=== PATIENT | male | born 1945 | race African-American/Black ===

== ENCOUNTER 2021-12-19 16:56 | Inpatient (IN) | payer MEDICARE ==
[2021-12-19] MEDS ORDERED: Morphine 4 MG/ML VIAL ONE (17:29)
[2021-12-19] MEDS ORDERED: Ondansetron PF 4 MG/2 ML Vial ONE (17:40)
[2021-12-19 22:30] VITALS: BMI 27.2
[2021-12-19] MEDS ORDERED: Morphine 4 MG/ML VIAL SLOW IVP SCH (23:30)
[2021-12-20] MEDS ORDERED: Acetaminophen 650 MG Suppository PR PRN (00:04)
[2021-12-20] MEDS ORDERED: Enoxaparin Sodium 40 MG/0.4 ML SYRINGE SC SCH (00:30)
[2021-12-20] MEDS: NS 0.9% w/ 20 MEQ KCL 1,000 ML/1,000 ML BAG IV SCH ×3 (00:53→20:03)
[2021-12-20] MEDS ORDERED: Aztreonam 1 GM in Sodium Chloride 0.9% 100 ML IVPB SCH (01:00)
[2021-12-20 04:52] LABS: #Eosinphils 0.2 10x3/uL (0.0-0.5); #Monocytes 0.8 10x3/uL (0.0-1.1); #Neutrophils 14.3 10x3/uL (1.5-8.4); %Basophils 0.2 % (0.0-2.0); %Eosinophils 1.2 % (0.0-6.0); %Lymphocytes 4.6 % (18.0-47.0); %Monocytes 4.7 % (0.0-10.0); %Neutrophils 88.3 % (40.0-75.0); Hemoglobin 12.6 g/dL (13.5-17.5); Mean Corpuscular HGB CONC 33.7 g/dL (32.0-36.0); Mean Corpuscular Volume 100.8 fl (81.2-95.1); Mean Platelet Volume 9.8 fl (7.4-10.4); Platelet Count 171 10x3/uL (150-450); RBC Distribution Width 12.7 % (11.5-14.5); Red Blood Cell (RBC) Count 3.71 10x6/uL (4.32-5.72); White Blood Cell (WBC) Count 16.2 10x3/uL (3.5-10.5)
[2021-12-20 05:26] LABS: ALT (SGPT) 623 U/L (8-55); AST (SGOT) 352 U/L (5-34); Albumin 3.7 g/dL (3.4-4.8); Alkaline Phosphatase 108 U/L (40-110); Anion Gap 14 mmol/L (10-20); BUN (Urea Nitrogen) 14 mg/dL (8.4-25.7); Bilirubin, Total 4.1 mg/dL (0.2-1.2); Calc. Creatinine Clearance 78 mL/min (70-130); Calcium 9.2 mg/dL (7.8-10.44); Carbon Dioxide 22 mmol/L (23-31); Chloride 105 mmol/L (98-107); Globulin 3.2 g/dL (2.4-3.5); Glucose 110 mg/dL (83-110); Magnesium 1.7 mg/dL (1.6-2.6); Potassium 3.9 mmol/L (3.5-5.1); Protein, Total 6.9 g/dL (5.8-8.1); Sodium 137 mmol/L (136-145)
[2021-12-20 05:42] LABS: MDiff Complete? YES; Platelet Morphology Comment Appears Adequate
[2021-12-20 05:46] LABS: Anisocytosis SLIGHT = 6-15 cells (100X) (0-5/hpf)
[2021-12-20 05:48] LABS: Band 10 % (5-11); Lymphocytes 2 % (21-51); Monocytes 6 % (0-10); Neutrophil 82 % (42-75)
[2021-12-20] MEDS: Morphine 4 MG/ML VIAL SLOW IVP PRN ×2 (15:38→20:15)
[2021-12-20 15:52] LABS: SARS-CoV-2 PCR by NAA Not Detected (NotDetected)
[2021-12-20] MEDS ORDERED: HumaLOG 300 UNITS/3 ML VIAL SC PRN (16:13)
[2021-12-20] MEDS ORDERED: Dextrose 5% in Water 1,000 ML IV PRN (16:13)
[2021-12-20] MEDS ORDERED: Dextrose 50% Abboject 50 ML SYRINGE SLOW IVP PRN (16:13)
[2021-12-20] MEDS ORDERED: Enoxaparin Sodium 40 MG/0.4 ML SYRINGE ONE (19:49)
[2021-12-20] MEDS: Gabapentin 300 MG CAP PO SCH (20:15)
[2021-12-20] MEDS: traZODone HCl 50 MG TAB PO SCH (20:16)
[2021-12-20] MEDS: Enoxaparin Sodium 40 MG/0.4 ML SYRINGE SC SCH (20:23)
[2021-12-21] MEDS: NS 0.9% w/ 20 MEQ KCL 1,000 ML/1,000 ML BAG IV SCH ×3 (00:14→18:23)
[2021-12-21 04:26] LABS: Hemoglobin 12.1 g/dL (13.5-17.5); Mean Corpuscular HGB CONC 33.2 g/dL (32.0-36.0); Mean Corpuscular Hemoglobin 33.5 pg (27.0-33.0); Mean Corpuscular Volume 100.8 fl (81.2-95.1); Mean Platelet Volume 9.8 fl (7.4-10.4); Platelet Count 177 10x3/uL (150-450); RBC Distribution Width 13.2 % (11.5-14.5); Red Blood Cell (RBC) Count 3.61 10x6/uL (4.32-5.72); White Blood Cell (WBC) Count 7.8 10x3/uL (3.5-10.5)
[2021-12-21 04:46] LABS: ALT (SGPT) 324 U/L (8-55); AST (SGOT) 121 U/L (5-34); Albumin 3.2 g/dL (3.4-4.8); Alkaline Phosphatase 130 U/L (40-110); Anion Gap 14 mmol/L (10-20); BUN (Urea Nitrogen) 16 mg/dL (8.4-25.7); Bilirubin, Total 3.8 mg/dL (0.2-1.2); Calc. Creatinine Clearance 82 mL/min (70-130); Calcium 9.1 mg/dL (7.8-10.44); Carbon Dioxide 21 mmol/L (23-31); Chloride 109 mmol/L (98-107); Globulin 3.1 g/dL (2.4-3.5); Glucose 72 mg/dL (83-110); Potassium 4.3 mmol/L (3.5-5.1); Protein, Total 6.3 g/dL (5.8-8.1); Sodium 140 mmol/L (136-145)
[2021-12-21] MEDS: Amlodipine 10 MG TAB PO SCH (09:12)
[2021-12-21] MEDS: Gabapentin 300 MG CAP PO SCH ×3 (09:12→20:37)
[2021-12-21] MEDS: Atorvastatin Calcium 40 MG TAB PO SCH (09:12)
[2021-12-21] MEDS: Morphine 2 MG/ML VIAL SLOW IVP PRN (20:35)
[2021-12-21] MEDS: Enoxaparin Sodium 40 MG/0.4 ML SYRINGE SC SCH (20:35)
[2021-12-21] MEDS: traZODone HCl 50 MG TAB PO SCH (20:36)
[2021-12-22] MEDS: NS 0.9% w/ 20 MEQ KCL 1,000 ML/1,000 ML BAG IV SCH ×3 (00:58→15:55)
[2021-12-22 04:42] LABS: #Eosinphils 0.2 10x3/uL (0.0-0.5); #Monocytes 0.5 10x3/uL (0.0-1.1); #Neutrophils 3.5 10x3/uL (1.5-8.4); %Basophils 0.6 % (0.0-2.0); %Eosinophils 3.9 % (0.0-6.0); %Lymphocytes 12.9 % (18.0-47.0); %Neutrophils 72.4 % (40.0-75.0); Hemoglobin 12.1 g/dL (13.5-17.5); Mean Corpuscular HGB CONC 33.3 g/dL (32.0-36.0); Mean Corpuscular Hemoglobin 33.8 pg (27.0-33.0); Mean Corpuscular Volume 101.4 fl (81.2-95.1); Mean Platelet Volume 9.7 fl (7.4-10.4); Platelet Count 177 10x3/uL (150-450); RBC Distribution Width 12.6 % (11.5-14.5); Red Blood Cell (RBC) Count 3.58 10x6/uL (4.32-5.72); White Blood Cell (WBC) Count 4.8 10x3/uL (3.5-10.5)
[2021-12-22 04:59] LABS: ALT (SGPT) 229 U/L (8-55); AST (SGOT) 90 U/L (5-34); Albumin 3.1 g/dL (3.4-4.8); Alkaline Phosphatase 149 U/L (40-110); Anion Gap 12 mmol/L (10-20); BUN (Urea Nitrogen) 11 mg/dL (8.4-25.7); Bilirubin, Total 3.4 mg/dL (0.2-1.2); Calc. Creatinine Clearance 93 mL/min (70-130); Calcium 8.9 mg/dL (7.8-10.44); Carbon Dioxide 22 mmol/L (23-31); Chloride 112 mmol/L (98-107); Globulin 3.2 g/dL (2.4-3.5); Glucose 103 mg/dL (83-110); Potassium 4.6 mmol/L (3.5-5.1); Protein, Total 6.3 g/dL (5.8-8.1); Sodium 141 mmol/L (136-145)
[2021-12-22] MEDS: Morphine 2 MG/ML VIAL SLOW IVP PRN ×2 (05:07→20:20)
[2021-12-22] MEDS: Atorvastatin Calcium 40 MG TAB PO SCH (08:43)
[2021-12-22] MEDS: Amlodipine 10 MG TAB PO SCH (08:43)
[2021-12-22] MEDS: Gabapentin 300 MG CAP PO SCH ×3 (08:43→20:19)
[2021-12-22] MEDS ORDERED: Bupivacaine 0.25% HCL 30 ML VIAL ONE (09:58)
[2021-12-22] MEDS ORDERED: Iopamidol 15 ML ONE (09:59)
[2021-12-22] MEDS ORDERED: EPINEPHrine 1 MG/ML AMP ONE (09:59)
[2021-12-22] MEDS ORDERED: Fentanyl 100 MCG/2 ML VIAL ONE ×2 (10:47→13:15)
[2021-12-22] MEDS ORDERED: PROPOFOL 20 ML ONE (10:47)
[2021-12-22] MEDS ORDERED: Rocuronium Bromide 10 MG/ML (10ML VIAL) ONE (10:48)
[2021-12-22] MEDS ORDERED: Lidocaine 2% PF 5 ML VIAL ONE (10:48)
[2021-12-22] MEDS ORDERED: Ondansetron PF 4 MG/2 ML Vial ONE (10:48)
[2021-12-22] MEDS ORDERED: SUGAMMADEX SODIUM 200 MG/2 ML VIAL ONE (10:50)
[2021-12-22] MEDS ORDERED: Iopamidol 30 ML ONE (11:59)
[2021-12-22 12:34] LABS: Hemoglobin A1c 5.5 % (4.0-6.0)
[2021-12-22] MEDS ORDERED: PHENYLEPHRINE-NS 100 MCG/ML 10 ML SYRINGE ONE (13:12)
[2021-12-22] MEDS: Morphine 4 MG/ML VIAL SLOW IVP PRN (15:54)
[2021-12-22] MEDS: Enoxaparin Sodium 40 MG/0.4 ML SYRINGE SC SCH (20:20)
[2021-12-22] MEDS: traZODone HCl 50 MG TAB PO SCH (20:21)
[2021-12-23] MEDS: NS 0.9% w/ 20 MEQ KCL 1,000 ML/1,000 ML BAG IV SCH ×2 (01:00→08:33)
[2021-12-23 04:23] LABS: #Eosinphils 0.1 10x3/uL (0.0-0.5); #Monocytes 0.6 10x3/uL (0.0-1.1); %Basophils 0.4 % (0.0-2.0); %Lymphocytes 10.4 % (18.0-47.0); %Monocytes 11.1 % (0.0-10.0); %Neutrophils 76.7 % (40.0-75.0); Hemoglobin 12.7 g/dL (13.5-17.5); Hemoglobin 12.9 g/dL (13.5-17.5); Mean Corpuscular HGB CONC 33.2 g/dL (32.0-36.0); Mean Corpuscular HGB CONC 33.5 g/dL (32.0-36.0); Mean Corpuscular Hemoglobin 33.3 pg (27.0-33.0); Mean Corpuscular Hemoglobin 33.7 pg (27.0-33.0); Mean Corpuscular Volume 100.3 fl (81.2-95.1); Mean Corpuscular Volume 100.5 fl (81.2-95.1); Mean Platelet Volume 9.6 fl (7.4-10.4); Platelet Count 178 10x3/uL (150-450); Platelet Count 181 10x3/uL (150-450); RBC Distribution Width 12.8 % (11.5-14.5); Red Blood Cell (RBC) Count 3.81 10x6/uL (4.32-5.72); Red Blood Cell (RBC) Count 3.83 10x6/uL (4.32-5.72); White Blood Cell (WBC) Count 5.1 10x3/uL (3.5-10.5); White Blood Cell (WBC) Count 5.2 10x3/uL (3.5-10.5)
[2021-12-23 04:44] LABS: ALT (SGPT) 227 U/L (8-55); AST (SGOT) 133 U/L (5-34); Albumin 3.1 g/dL (3.4-4.8); Alkaline Phosphatase 188 U/L (40-110); Anion Gap 15 mmol/L (10-20); BUN (Urea Nitrogen) 8 mg/dL (8.4-25.7); Bilirubin, Total 2.6 mg/dL (0.2-1.2); Calc. Creatinine Clearance 101 mL/min (70-130); Carbon Dioxide 21 mmol/L (23-31); Chloride 108 mmol/L (98-107); Globulin 3.2 g/dL (2.4-3.5); Glucose 109 mg/dL (83-110); Potassium 4.4 mmol/L (3.5-5.1); Protein, Total 6.3 g/dL (5.8-8.1); Sodium 140 mmol/L (136-145)
[2021-12-23] MEDS: Atorvastatin Calcium 40 MG TAB PO SCH (08:32)
[2021-12-23] MEDS: Amlodipine 10 MG TAB PO SCH (08:33)
[2021-12-23] MEDS: Gabapentin 300 MG CAP PO SCH (08:33)
[2021-12-23 11:09] VITALS: TEMP 99
[2021-12-23 11:57] VITALS: BP 134/85
== END 2021-12-23 14:31 | disposition home or self-care (01) | DRG 419 ==
LOC: CSHERS 16:56 → UNDOADMIN 21:29 → CSHTELE 21:29
PROVIDERS: ADMIT Family Medicine; ATTEND Internal Medicine
PROC: 0FT44ZZ Resection of Gallbladder, Percutaneous Endoscopic Approach (ICD-10-PCS; principal; 2021-12-22)
PROC: BF502Z0 Other Imaging of Bile Ducts using Fluorescing Agent, Intraoperative (ICD-10-PCS; 2021-12-22)
DX: K80.00 Calculus of gallbladder with acute cholecystitis without obstruction (principal); I10 Essential (primary) hypertension; E78.00 Pure hypercholesterolemia, unspecified; E11.42 Type 2 diabetes mellitus with diabetic polyneuropathy; E78.2 Mixed hyperlipidemia; Z20.822 Contact with and (suspected) exposure to COVID-19; Z88.0 Allergy status to penicillin; Z79.84 Long term (current) use of oral hypoglycemic drugs
CPT/HCPCS: 36415; 36416; 47532; 74181; 76705; 80053; 82607; 82746; 83036; 83735; 85025; 85027; 88304; 94760; 96374; 96375; C1713; J0171; J1650; J1956; J2001; J2270; J2405; J2704; J3010; J3480; J3490; Q9967; S0020; U0003; U0005